=== PATIENT | male | born 1990 | race Caucasian/White ===

== ENCOUNTER 2021-10-03 22:41 | Emergency (ER) | payer OTHER ==
[~2021-10-03 22:41] MED LIST: NORCO 10-325 T1 EACH PO
== END 2021-10-04 00:55 | disposition left against medical advice (07) ==
LOC: ER1 22:41
DX: S09.90XA Unspecified injury of head, initial encounter (principal); M79.601 Pain in right arm; M79.602 Pain in left arm; M54.9 Dorsalgia, unspecified; R00.0 Tachycardia, unspecified; Z86.19 Personal history of other infectious and parasitic diseases; Z90.89 Acquired absence of other organs; F17.210 Nicotine dependence, cigarettes, uncomplicated; W20.8XXA Other cause of strike by thrown, projected or falling object, initial encounter
CPT/HCPCS: 73090; 99283; Q9967